=== PATIENT | male | born 1950 | race Caucasian/White ===

== ENCOUNTER 2019-02-09 11:42 | Emergency (ER) | payer BC, OTHER ==
[2019-02-09] MEDS ORDERED: IBUPROFEN 400 MG TAB ONE (12:46)
[2019-02-09] MEDS ORDERED: IBUPROFEN 200 MG TAB PO ONE (12:46)
[2019-02-09 13:17] LABS: Absolute Lymphocytes (CBC) 1.5 K/uL (0.7-4.9); Basophils % 0.4 % (0-1.3); Hematocrit 42.5 % (39.6-49.0); Lymphocytes % 13.2 % (15.3-44.8); MPV 8.2 fL (7.6-11.3); RBC Red Blood Cell Count 4.52 M/uL (4.33-5.43)
[2019-02-09 13:27] LABS: BUN Blood Urea Nitrogen 10 mg/dL (7-18); Bicarbonate 29 mmol/L (21-32); Glucose Level 147 mg/dL (74-106); Potassium 3.7 mmol/L (3.5-5.1); Sodium Level 137 mmol/L (136-145)
--- NOTE | 2019-02-09 13:58 | RAD REPORT ---
EXAM DESCRIPTION: USExtremity Venous Uni Ltd02/09/2019 1:27 pm CLINICAL HISTORY: Right leg pain and swelling. COMPARISON: None. FINDINGS: Right common femoral, superficial femoral, popliteal and right posterior tibial veins are compressible and demonstrate augmentation. Doppler demonstrates good flow. IMPRESSION: No evidence of deep venous thrombosis involving the right lower extremity.
--- NOTE | 2019-02-09 13:58 | RAD REPORT ---
EXAM DESCRIPTION: US - Extremity Nonvascular Limited - 02/09/2019 1:27 pm CLINICAL HISTORY: Right leg swelling and pain COMPARISON: None FINDINGS: Ill-defined fluid is present within the subcutaneous tissues of the right knee having the appearance of a cellulitis. A discrete abscess is not visualized IMPRESSION: Cellulitis involving the right knee
[2019-02-09] MEDS ORDERED: CLINDAMYCIN 900MG/D5W 900 MG/50 ML IVPB IV ONE (15:19)
[2019-02-09] MEDS ORDERED: SMZ./TMP. 800/160 MG TABLET ONE (15:19)
--- NOTE | 2019-02-09 15:23 | ER ---
Nurse's Notes [facility] Name: Gaurav June Age: 68 yrs Sex: Male : 1950 Arrival Date: 02/09/2019 Time: 11:46 Bed 5 Private MD: Diagnosis: Cellulitis, unspecified-Right knee Presentation: 02/09 11:48 Presenting complaint: Patient states: right knee swelling started a a few weeks ago and sv then the right leg has started swelling. Transition of care: patient was not received from another setting of care. Onset of symptoms was January 2019. Care prior to arrival: None. 11:48 Method Of Arrival: Ambulatory sv 11:48 Acuity: GAGAN 3 sv 16:13 Risk Assessment: Do you want to hurt yourself or someone else?. ss Triage Assessment: 11:52 General: Appears in no apparent distress. comfortable, Behavior is cooperative, bp appropriate for age, anxious. Pain: Complains of pain in right leg. EENT: No deficits noted. Neuro: No deficits noted. Cardiovascular: No deficits noted. Respiratory: No deficits noted. GI: No signs and/or symptoms were reported involving the gastrointestinal system. : No signs and/or symptoms were reported regarding the genitourinary system. Derm: No deficits noted. Musculoskeletal: Swelling present in right leg. Historical: - Allergies: 11:49 No Known Allergies; sv - PMHx: 11:49 None; sv - PSHx: 11:49 None; sv - Immunization history:: Adult Immunizations up to date. - Social history:: Smoking status: Patient/guardian denies using tobacco. Screenin:53 Abuse screen: Denies threats or abuse. Denies injuries from another. Nutritional bp screening: No deficits noted. Tuberculosis screening: No symptoms or risk factors identified. Fall Risk None identified. Assessment: 11:53 General: SEE TRIAGE NOTE. bp 14:00 Reassessment: PT RETURNED FROM U/S, RESULTS PENDING. bp 15:30 Reassessment: D/C ON HOLD FOR IV ABX. bp Vital Signs: 11:49 BP 147 / 78; Pulse 43; Resp 16; Temp 98.1; Pulse Ox 99% ; Weight 92.99 kg; Height 6 ft. sv 1 in. (185.42 cm); Pain 6/10; 13:09 BP 133 / 60; Pulse 54; Resp 18; Pulse Ox 99% on R/A; ph 14:12 BP 113 / 60; Pulse 40; Resp 17; Pulse Ox 97% ; bp 15:31 BP 114 / 70; Pulse 45; Resp 16; Pulse Ox 100% ; bp 11:49 Body Mass Index 27.05 (92.99 kg, 185.42 cm) sv ED Course: 11:46 Patient arrived in ED. mr 11:48 Triage completed. sv 11:49 Arm band placed on. sv 11:51 Danie Amin, RN is Primary Nurse. bp 11:53 Patient has correct armband on for positive identification. Bed in low position. Call bp light in reach. Side rails up X2. 12:15 Duke Norris MD is Attending Physician. kdr 12:55 Initial lab(s) drawn, by me, sent to lab. First set of blood cultures drawn by me. ph Inserted saline lock: 20 gauge in right antecubital area, using aseptic technique. Blood collected. 13:27 US Extremity Venous Unilateral Ltd In Process Unspecified. EDMS 13:27 US Extrmty Nonvasular Limited In Process Unspecified. EDMS 16:05 No provider procedures requiring assistance completed. Patient did not have IV access ss during this emergency room visit. Administered Medications: 13:08 Drug: Ibuprofen 600 mg Route: PO; ph 14:14 Follow up: Response: Pain is decreased bp 15:10 Drug: Bactrim (160 mg-800 mg (DS) 1 tablet Route: PO; bp 16:05 Follow up: Response: No adverse reaction ss 15:25 Drug: Clindamycin 900 mg Route: IVPB; Infused Over: 30 mins; Site: right forearm; bp 16:05 Follow up: IV Status: Completed infusion ss Outcome: 15:22 Discharge ordered by . kdr 16:05 Discharged to home ambulatory. ss 16:05 Condition: good 16:05 Discharge instructions given to patient, Instructed on discharge instructions, follow up and referral plans. medication usage, Demonstrated understanding of instructions, follow-up care, medications. 16:13 Patient left the ED. ss Signatures: Dispatcher [employer] EDMS Yoli Pearce RN RN Duke Norris MD MD [facility] [place] Kady mr Breanne Fernandez RN RN Jodi Perales RN RN ph Eloisa, Danie, RN RN bp
--- NOTE | 2019-02-09 15:23 | EDPHYS ---
Physician Documentation [facility] Name: Gaurav June Age: 68 yrs Sex: Male : 1950 Arrival Date: 02/09/2019 Time: 11:46 Bed 5 Private MD: ED Physician Duke Norris HPI: 02/09 16:18 This 68 yrs old Male presents to ER via Ambulatory with complaints of Leg kdr Swelling. 16:18 The patient presents with pain, that is acute, swelling, tenderness. The complaints kdr affect the right knee, right russo and anterior aspect of right ankle. Context: The problem was sustained at home, resulted from an unknown cause, the patient can fully bear weight, the patient is able to ambulate, without difficulty, The patient thought he had a splinter in his knee last week - now has pain and swelling to his anterior right knee. Onset: The symptoms/episode began/occurred gradually, 1 week(s) ago. Modifying factors: The symptoms are alleviated by nothing. the symptoms are aggravated by movement, Touching the area. Associated signs and symptoms: The patient has no apparent associated signs or symptoms. Severity of symptoms: At their worst the symptoms were moderate, in the emergency department the symptoms are unchanged. The patient has not experienced similar symptoms in the past. The patient has not recently seen a physician. Historical: - Allergies: 11:49 No Known Allergies; sv - PMHx: :49 None; sv - PSHx: 11:49 None; sv - Immunization history:: Adult Immunizations up to date. - Social history:: Smoking status: Patient/guardian denies using tobacco. ROS: 16:18 Constitutional: Negative for fever, chills, and weight loss, Eyes: Negative for injury, kdr pain, redness, and discharge, ENT: Negative for injury, pain, and discharge, Neck: Negative for injury, pain, and swelling, Cardiovascular: Negative for chest pain, palpitations, and edema, Respiratory: Negative for shortness of breath, cough, wheezing, and pleuritic chest pain, Abdomen/GI: Negative for abdominal pain, nausea, vomiting, diarrhea, and constipation, Back: Negative for injury and pain, : Negative for injury, bleeding, discharge, and swelling, Skin: Negative for injury, rash, and discoloration, Neuro: Negative for headache, weakness, numbness, tingling, and seizure activity. Psych: Negative for depression, anxiety, suicide ideation, homicidal ideation, and hallucinations, Allergy/Immunology: Negative for hives, rash, and allergies, Endocrine: Negative for neck swelling, polydipsia, polyuria, polyphagia, and marked weight changes, Hematologic/Lymphatic: Negative for swollen nodes, abnormal bleeding, and unusual bruising. 16:18 MS/extremity: Positive for erythema, pain, swelling, tenderness, of the posterior aspect of right knee. Exam: 16:21 Constitutional: This is a well developed, well nourished patient who is awake, alert, kdr and in no acute distress. Head/Face: Normocephalic, atraumatic. Eyes: Pupils equal round and reactive to light, extra-ocular motions intact. Lids and lashes normal. Conjunctiva and sclera are non-icteric and not injected. Cornea within normal limits. Periorbital areas with no swelling, redness, or edema. Neck: Trachea midline, no thyromegaly or masses palpated, and no cervical lymphadenopathy. Supple, full range of motion without nuchal rigidity, or vertebral point tenderness. No Meningismus. Chest/axilla: Normal chest wall appearance and motion. Nontender with no deformity. No lesions are appreciated. Cardiovascular: Regular rate and rhythm with a normal S1 and S2. No gallops, murmurs, or rubs. Normal PMI, no JVD. No pulse deficits. Respiratory: Lungs have equal breath sounds bilaterally, clear to auscultation and percussion. No rales, rhonchi or wheezes noted. No increased work of breathing, no retractions or nasal flaring. Abdomen/GI: Soft, non-tender, with normal bowel sounds. No distension or tympany. No guarding or rebound. No evidence of tenderness throughout. Back: No spinal tenderness. No costovertebral tenderness. Full range of motion. Neuro: Awake and alert, GCS 15, oriented to person, place, time, and situation. Cranial nerves II-XII grossly intact. Motor strength 5/5 in all extremities. Sensory grossly intact. Cerebellar exam normal. Normal gait. Psych: Awake, alert, with orientation to person, place and time. Behavior, mood, and affect are within normal limits. 16:21 Skin: cellulitis, that is mild, that is moderate, confluent, well demarcated. 16:21 Neuro: Exam negative for acute changes, focal neuro deficits, motor deficits, sensory deficits, cerebellar deficits, altered mental status, confusion, Orientation: Vital Signs: 11:49 BP 147 / 78; Pulse 43; Resp 16; Temp 98.1; Pulse Ox 99% ; Weight 92.99 kg; Height 6 ft. sv 1 in. (185.42 cm); Pain 6/10; 13:09 BP 133 / 60; Pulse 54; Resp 18; Pulse Ox 99% on R/A; ph 14:12 BP 113 / 60; Pulse 40; Resp 17; Pulse Ox 97% ; bp 15:31 BP 114 / 70; Pulse 45; Resp 16; Pulse Ox 100% ; bp 11:49 Body Mass Index 27.05 (92.99 kg, 185.42 cm) sv MDM: 15:22 Patient medically screened. kdr 16:21 Data reviewed: vital signs, nurses notes, lab test result(s), radiologic studies. kdr Counseling: I had a detailed discussion with the patient and/or guardian regarding: the historical points, exam findings, and any diagnostic results supporting the discharge/admit diagnosis, radiology results. 02/09 12:35 Order name: CBC with Diff; Complete Time: 13:27 kdr 02/09 12:35 Order name: Chem 7; Complete Time: 14:38 kdr 02/09 12:35 Order name: Extremity Venous Unilateral Ltd; Complete Time: 14:38 kdr 02/09 12:39 Order name: Extrmty Nonvasular Limited; Complete Time: 14:38 kdr 02/09 12:40 Order name: Blood Culture Adult (2) kdr 02/09 12:41 Order name: ESR; Complete Time: 14:38 kdr Administered Medications: 13:08 Drug: Ibuprofen 600 mg Route: PO; ph 14:14 Follow up: Response: Pain is decreased bp 15:10 Drug: Bactrim (160 mg-800 mg (DS) 1 tablet Route: PO; bp 16:05 Follow up: Response: No adverse reaction ss 15:25 Drug: Clindamycin 900 mg Route: IVPB; Infused Over: 30 mins; Site: right forearm; bp 16:05 Follow up: IV Status: Completed infusion ss Disposition: 02/09/19 15:22 Discharged to Home. Impression: Cellulitis, unspecified - Right knee. - Condition is Stable. - Discharge Instructions: Cellulitis, Adult, [id number]. - Prescriptions for Clindamycin HCl 300 mg Oral Capsule - take 1 capsule by ORAL route every 6 hours for 10 days; 40 capsule. Bactrim DS 800- 160 mg Oral Tablet - take 1 tablet by ORAL route every 12 hours for 10 days; 20 tablet. - Medication Reconciliation Form, Thank You Letter, Antibiotic Education form. - Follow up: Private Physician; When: 2 - 3 days; Reason: If symptoms return, Further diagnostic work-up, Recheck today's complaints, Continuance of care, Re-evaluation by your physician. - Problem is new. - Symptoms have improved. Signatures: Dispatcher [employer] EDYoli Sullivan, RN RN Duke Norris MD MD [facility] Breanne Fernandez RN RN ss Jodi Perales RN RN Danie Amin RN RN bp Corrections: (The following items were deleted from the chart) 16:13 15:22 02/09/2019 15:22 Discharged to Home. Impression: Cellulitis, unspecified - Right ss knee. Condition is Stable. Forms are Medication Reconciliation Form, Thank You Letter, Antibiotic Education, Prescription Opioid Use. Follow up: Private Physician; When: 2 - 3 days; Reason: If symptoms return, Further diagnostic work-up, Recheck today's complaints, Continuance of care, Re-evaluation by your physician. Problem is new. Symptoms have improved. kdr
[2019-02-09 16:32] VITALS: TEMP 98.1
[2019-02-09 16:35] VITALS: BP 114/70; O2SAT 100
== END 2019-02-09 16:13 | disposition home or self-care (01) ==
LOC: ER 11:42
DX: L03.115 Cellulitis of right lower limb (principal)
CPT/HCPCS: 36415; 76882; 80048; 85025; 85652; 87040; 93971; 96365; 99284